=== PATIENT | male | born 1985 | race African-American/Black ===

== ENCOUNTER 2024-03-13 16:34 | Emergency (ER) | payer SELFPAY ==
[~2024-03-13] VITALS: Ht 180.3 cm; Wt 100.0 kg
[2024-03-13 16:45] VITALS: BP 113/70; TEMP 98; O2SAT 100
[2024-03-13 16:54] VITALS: PULSE 71; O2SAT 98
[2024-03-13] MEDS: BACITRACIN ZINC OINT UDPKT TOP NR (19:00)
[2024-03-13] MEDS: TETANUS, DIPHTHERIA, PERTUSSIS VAC/PF 0.5ML (>10YR OLD) IM ONE (19:00)
[2024-03-13 19:15] VITALS: RESP 16
== END 2024-03-13 19:27 | disposition home or self-care (01) ==
LOC: ER 16:34
DX: S61.300A Unspecified open wound of right index finger with damage to nail, initial encounter (principal); W26.8XXA Contact with other sharp object(s), not elsewhere classified, initial encounter; Y93.89 Activity, other specified; Y92.89 Other specified places as the place of occurrence of the external cause; Y99.8 Other external cause status
CPT/HCPCS: 90715; 90471; 99283; Z7610 ×2